=== PATIENT | male | born 1985 | race Caucasian/White ===

== ENCOUNTER 2025-06-08 20:59 | Emergency (ER) | payer MEDICAID ==
[~2025-06-08] VITALS: Ht 180.3 cm; Wt 100.0 kg
--- NOTE | 2025-06-08 21:22 | ELECTROCARDIOGRAPH REPORT ---
[facility] Test Date: 2025-06-08 Test Time: 21:09:34 Pat Name: SHEREE STOVALL Department: EMERGENCY ROOM Room: Gender: M Health Services Coordinator: PM : 1985 Requested By: NITO LINDA Order Number: [id number] Reading MD: Dr. Nestor Martinez Measurements Intervals [place] Rate: 154 P: 37 RI: 134 QRS: 67 QRSD: 93 T: -9 QT: 325 QTc: 520 Interpretive Statements Sinus tachycardia Probable left atrial enlargement Borderline T wave abnormalities Prolonged QT interval Electronically Signed On 06-11-2025 20:44:[address] Nestor Martinez Please click the below link to view image of tracing.
[2025-06-08 21:40] LABS: MEAN PLATELET VOLUME 9.5 FL (7.4-10.4); RED CELL DISTRIBUTION WIDTH 13.2 % (11.5-14.5)
[2025-06-08 21:53] LABS: CREATININE 0.69 MG/DL (0.60-1.10); TOTAL CARBON DIOXIDE 26.8 MMOL/L (24-32); eCRCL 153 ML/MIN; eGFR > 90 ML/MIN
[2025-06-08] MEDS ORDERED: PROP10TA10 PO (22:53)
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
[2025-06-08] MEDS: propranolol 10mg tablet PO ONE (23:01)
[2025-06-08 23:07] VITALS: BP 142/78; PULSE 107; RESP 18; TEMP 98; O2SAT 99
== END 2025-06-08 23:10 ==
LOC: ER 21:00
DX: Z02.89 Encounter for other administrative examinations (principal); E05.90 Thyrotoxicosis, unspecified without thyrotoxic crisis or storm; Z79.899 Other long term (current) drug therapy
CPT/HCPCS: 36415; 80053; 83735; 84439; 84443; 85025; 93005; 99284; 99285